=== PATIENT | male | born 1990 | race Caucasian/White ===

== ENCOUNTER → 2016-09-18 | Outpatient (CLI) | payer BC ==
[~2016-09-18] MED LIST: ASCO-184 PO; CETI10TA24 PO
== END ==
LOC: STAR 09:10
PROVIDERS: ATTEND Surgery
DX: Z02.9 Encounter for administrative examinations, unspecified (principal)

== ENCOUNTER 2016-09-22 13:08 | Day surgery (SDC) | payer BC ==
[~2016-09-22] VITALS: Ht 185.4 cm; Wt 86.5 kg
[~2016-09-22 13:08] MED LIST changes: +BUPIVACAINE/PF-EPI 0.5% 1:200K ONE
[2016-09-22] MEDS ORDERED: LACTATED RINGERS 1,000 ML IV SCH (13:37)
[2016-09-22 14:02] VITALS: BP 137/85
[2016-09-22] MEDS ORDERED: FENTANYL PF 250 MCG/5ML ONE (15:32)
[2016-09-22] MEDS ORDERED: NEOSTIGMINE 1 MG/ML, 10ML ONE (16:09)
[2016-09-22] MEDS ORDERED: GLYCOPYRROLATE 0.2MG/1ML ONE (16:09)
[2016-09-22] MEDS ORDERED: CEFAZOLIN 1,000 MG ONE (16:09)
[2016-09-22] MEDS ORDERED: KETOROLAC 30 MG/1 ML ONE (16:09)
[2016-09-22] MEDS ORDERED: PROPOFOL 10 MG/ML, 20ML ONE (16:09)
[2016-09-22] MEDS ORDERED: METOCLOPRAMIDE 5 MG/ML, 2ML ONE (16:09)
[2016-09-22] MEDS ORDERED: ROCURONIUM 10 MG/ML ONE (16:09)
[2016-09-22] MEDS ORDERED: ONDANSETRON 2MG/ML, 2ML ONE (16:09)
[2016-09-22] MEDS ORDERED: DEXAMETHASONE 4 MG/ML, 1ML ONE (16:09)
[2016-09-22] MEDS ORDERED: OXYcodone 5 MG/5 ML ORAL.SOL UDC ONE (17:16)
[2016-09-22] MEDS ORDERED: HYDROmorphone 1 MG/ML, 1ML IV PRN (17:30)
[2016-09-22] MEDS ORDERED: PROMETHAZINE 25 MG/ML, 1ML IV PRN (17:30)
[2016-09-22] MEDS ORDERED: LABETALOL 5MG/ML, 20ML IV PRN (17:30)
[2016-09-22] MEDS ORDERED: FENTANYL PF 100 MCG/2ML IV PRN (17:30)
[2016-09-22] MEDS ORDERED: MEPERIDINE/PF 25MG/0.5ML IVPush PRN (17:30)
[2016-09-22] MEDS ORDERED: hydrALAzine 20 MG/ML, 1ML IV PRN (17:30)
[2016-09-22] MEDS ORDERED: OXYcodone 5 MG/5 ML ORAL.SOL UDC PO PRN (17:30)
[2016-09-22] MEDS ORDERED: ONDANSETRON 2MG/ML, 2ML IVPush PRN (17:30)
[2016-09-22] MEDS ORDERED: MIDAZOLAM 1 MG/ML, 2ML IV PRN (17:30)
[2016-09-22] MEDS ORDERED: FENTANYL PF 100 MCG/2ML ONE (17:33)
== END 2016-09-22 20:20 ==
LOC: OUT 13:08
PROVIDERS: ATTEND Surgery
DX: K40.90 Unilateral inguinal hernia, without obstruction or gangrene, not specified as recurrent (principal); I10 Essential (primary) hypertension
CPT/HCPCS: 49505; C1781; J0690; J1100; J1885; J2405; J2704; J2710; J2765; J3010; J7120; J3490